=== PATIENT | male | born 1965 | race African-American/Black ===

== ENCOUNTER 2017-10-11 10:06 | Inpatient (IN) | payer OTHER ==
[~2017-10-11 10:06] MED LIST: ATROPINE 1 MG/10 ML SYRINGE IV; CEFAZOLIN 1 GM INJ; DIPHENHYDRAMINE 50 MG INJ IV; EPHEDrine SULFATE 50 MG/5 ML SYG IV; FENTAnyl 50 MCG/ML VIAL IV; HYDROmorphONE (0.2 MG/ML) 10ML SYG IV; LABETALOL HCL 20MG INJ IV; MEPERIDINE 25 MG INJ IV; MIDAZOLAM 1 MG/ML 2 ML INJ IV; ONDANSETRON 4 MG INJ IV; OXYCODONE/ACETAMINOPHEN (5/325) TAB PO; hydrALAzine 20 MG INJ IV; morphine (1 MG/ML) 10ML SYRINGE IV
[2017-10-11] MEDS ORDERED: FENTAnyl 50 MCG/ML VIAL (10:27)
[2017-10-11] MEDS ORDERED: ROCURONIUM 50 MG INJ (10:27)
[2017-10-11] MEDS ORDERED: PROPOFOL 20 ML (10:27)
[2017-10-11] MEDS ORDERED: GLYCOPYRROLATE 1 MG INJ (10:27)
[2017-10-11] MEDS ORDERED: MIDAZOLAM 1 MG/ML 2 ML INJ (10:27)
[2017-10-11] MEDS ORDERED: DEXAMETHASONE 4 MG/ML 1 ML INJ ×2 (10:27→12:51)
[2017-10-11] MEDS ORDERED: NEOSTIGMINE 3 MG/3 ML SYRINGE (10:27)
[2017-10-11] MEDS ORDERED: LIDOCAINE 2% (SDV) 5 ML INJ (10:27)
[2017-10-11] MEDS ORDERED: ONDANSETRON 4 MG INJ (10:28)
[2017-10-11] MEDS ORDERED: POLYMYXIN/BACITRACIN 1L IRRIG (11:34)
[2017-10-11] MEDS ORDERED: HYDROCORTISONE 100 MG INJ (12:57)
[2017-10-11] MEDS: LIDOCAINE 1%/EPI 30 ML INJ (13:34)
[2017-10-11] MEDS: THROMBIN 5000 UNIT VIAL (13:35)
[2017-10-11] MEDS: GELATIN SIZE 100 SPONGE (13:36)
[2017-10-11] MEDS ORDERED: EPHEDrine SULFATE 50 MG/5 ML SYG (13:36)
[2017-10-11] MEDS ORDERED: ACETAMINOPHEN 325 MG TAB PO ×2 (14:30→23:00)
[2017-10-11] MEDS ORDERED: ONDANSETRON 4 MG INJ IV (14:30)
[2017-10-11] MEDS: HYDROmorphONE (0.2 MG/ML) 10ML SYG IV (15:20)
[2017-10-11] MEDS: HYDROCODONE/APAP (7.5/325) TAB PO ×2 (15:43→22:34)
[2017-10-11] MEDS: CEFAZOLIN 1 GM/50 ML (PMX) 50 ML IVPB (16:14)
[2017-10-11] MEDS: morphine 2 MG INJ IV (16:14)
[2017-10-11] MEDS: DEXTROSE 5%-LR 1,000 ML IV (16:14)
[2017-10-11] MEDS ORDERED: hydrALAzine 20 MG INJ IV (17:30)
[2017-10-11] MEDS ORDERED: GLUCOSE GEL 15 GRAM TUBE PO ×2 (18:00)
[2017-10-11] MEDS ORDERED: GLUCOSE GEL 15 GRAM TUBE BUCCAL (18:00)
[2017-10-11] MEDS ORDERED: DEXTROSE 50% 50 ML SYRINGE IV ×2 (18:00)
[2017-10-11] MEDS ORDERED: GLUCAGON 1 MG INJ IM (18:00)
[2017-10-11] MEDS: DEXAMETHASONE 4 MG/ML 1 ML INJ IV (18:25)
[2017-10-11] MEDS: metFORMIN 500 MG TAB PO (18:25)
[2017-10-11] MEDS: NS + KCL 20 MEQ 1,000 ML IV (18:26)
[2017-10-11] MEDS: INSULIN ASPART [NOVOLOG] 3 ML PEN SC ×2 (19:02→21:00)
[2017-10-11] MEDS: NPH, HUMAN INSULIN ISOPHANE 3ML VIAL SC (19:02)
[2017-10-11] MEDS: ATORVASTATIN 20 MG TAB PO (20:57)
[2017-10-12] MEDS: DEXAMETHASONE 4 MG/ML 1 ML INJ IV ×4 (00:16→18:02)
[2017-10-12] MEDS: CEPASTAT LOZENGE MT ×4 (00:16→23:56)
[2017-10-12] MEDS: CEFAZOLIN 1 GM/50 ML (PMX) 50 ML IVPB ×2 (00:16→08:41)
[2017-10-12] MEDS: NPH, HUMAN INSULIN ISOPHANE 3ML VIAL SC ×5 (00:49→23:59)
[2017-10-12] MEDS: NS + KCL 20 MEQ 1,000 ML IV ×2 (04:18→16:06)
[2017-10-12 05:13] LABS: ADD MAN DIFF? NO
[2017-10-12 05:20] LABS: BASOPHILS % 0.1 % (0.0-2.0); HEMATOCRIT 39.9 % (42.0-52.0); HEMOGLOBIN 13.5 g/dl (14.0-18.0); LYMPHOCYTES # 1.1 10^3/ul (0.8-2.9); LYMPHOCYTES % 6.8 % (15.0-51.0); MEAN CORPUSCULAR HGB CONC 33.8 g/dl (32.0-37.0); MEAN CORPUSCULAR VOLUME 85.8 fl (82.0-101.0); MEAN PLATELET VOLUME 9.6 fl (7.4-10.4); MONOCYTE # 0.2 10^3/ul (0.3-0.9); MONOCYTES % 1.4 % (0.0-11.0); NEUTROPHIL # 14.7 10^3/ul (1.6-7.5); NEUTROPHILS % 91.3 % (39.0-77.0); PLATELET COUNT 337 10^3/UL (140-415); RED BLOOD COUNT 4.65 10^6/ul (4.70-6.10); RED CELL DISTRIBUTION WIDTH 13.3 % (11.5-14.5)
[2017-10-12 05:20] LABS: WHITE BLOOD COUNT 16.1 10^3/ul (4.8-10.8)
[2017-10-12 06:13] LABS: ALANINE AMINOTRANSFERASE 33 IU/L (13-69); ALBUMIN 4.2 g/dl (3.3-4.9); ALBUMIN/GLOBULIN RATIO 1.44; ALKALINE PHOSPHATASE 80 IU/L (42-121); ANION GAP 19 (8-16); ASPARTATE AMINO TRANSFERASE 30 IU/L (15-46); BILIRUBIN,INDIRECT 0.6 mg/dl (0-1.1); BILIRUBIN,TOTAL 0.6 mg/dl (0.2-1.3); BLOOD UREA NITROGEN 12 mg/dl (7-20); CARBON DIOXIDE 24 mmol/L (21-31); CHLORIDE 101 mmol/L (97-110); CREATININE 0.97 mg/dl (0.61-1.24); GLUCOSE 171 mg/dl (70-220); POTASSIUM 4.6 mmol/L (3.5-5.1); SODIUM 139 mmol/L (135-144); TOTAL PROTEIN 7.1 g/dl (6.1-8.1)
[2017-10-12] MEDS: morphine 2 MG INJ IV (06:15)
[2017-10-12] MEDS: INSULIN ASPART [NOVOLOG] 3 ML PEN SC ×4 (07:50→21:01)
[2017-10-12] MEDS: metFORMIN 500 MG TAB PO ×2 (08:41→18:02)
[2017-10-12] MEDS: HYDROCODONE/APAP (7.5/325) TAB PO ×4 (10:02→23:56)
[2017-10-12] MEDS: ATORVASTATIN 20 MG TAB PO (20:59)
[2017-10-13] MEDS: NS + KCL 20 MEQ 1,000 ML IV (04:27)
[2017-10-13 05:07] LABS: ADD MAN DIFF? NO
[2017-10-13 05:12] LABS: BASOPHILS % 0.1 % (0.0-2.0); HEMATOCRIT 36.3 % (42.0-52.0); HEMOGLOBIN 12.6 g/dl (14.0-18.0); LYMPHOCYTES # 1.6 10^3/ul (0.8-2.9); LYMPHOCYTES % 6.9 % (15.0-51.0); MEAN CORPUSCULAR HEMOGLOBIN 29.9 pg (29.0-33.0); MEAN CORPUSCULAR HGB CONC 34.7 g/dl (32.0-37.0); MEAN CORPUSCULAR VOLUME 86.2 fl (82.0-101.0); MEAN PLATELET VOLUME 10.3 fl (7.4-10.4); MONOCYTE # 1.1 10^3/ul (0.3-0.9); MONOCYTES % 4.7 % (0.0-11.0); NEUTROPHIL # 19.8 10^3/ul (1.6-7.5); NEUTROPHILS % 87.6 % (39.0-77.0); PLATELET COUNT 279 10^3/UL (140-415); RED BLOOD COUNT 4.21 10^6/ul (4.70-6.10); RED CELL DISTRIBUTION WIDTH 13.7 % (11.5-14.5)
[2017-10-13 05:12] LABS: WHITE BLOOD COUNT 22.6 10^3/ul (4.8-10.8)
[2017-10-13 05:49] LABS: ANION GAP 18 (8-16); BLOOD UREA NITROGEN 16 mg/dl (7-20); CALCIUM 8.7 mg/dl (8.4-10.2); CARBON DIOXIDE 23 mmol/L (21-31); CHLORIDE 103 mmol/L (97-110); CREATININE 0.92 mg/dl (0.61-1.24); GLUCOSE 126 mg/dl (70-220); POTASSIUM 4.7 mmol/L (3.5-5.1); SODIUM 139 mmol/L (135-144)
[2017-10-13] MEDS: HYDROCODONE/APAP (7.5/325) TAB PO (07:37)
[2017-10-13] MEDS: CEPASTAT LOZENGE MT (07:37)
[2017-10-13] MEDS: INSULIN ASPART [NOVOLOG] 3 ML PEN SC (07:50)
[2017-10-13] MEDS: metFORMIN 500 MG TAB PO (09:06)
== END 2017-10-13 10:51 | disposition home or self-care (01) | DRG 473 ==
LOC: REC 10:06 → MS1 15:00
PROVIDERS: Neurological Surgery
PROC: 0RG10K0 Fusion of Cervical Vertebral Joint with Nonautologous Tissue Substitute, Anterior Approach, Anterior Column, Open Approach (ICD-10-PCS; principal; 2017-10-11 12:29)
PROC: 0RT30ZZ Resection of Cervical Vertebral Disc, Open Approach (ICD-10-PCS; 2017-10-11 12:29)
DX: M50.022 Cervical disc disorder at C5-C6 level with myelopathy (principal); I10 Essential (primary) hypertension; E11.9 Type 2 diabetes mellitus without complications; E78.5 Hyperlipidemia, unspecified; F17.200 Nicotine dependence, unspecified, uncomplicated; M48.02 Spinal stenosis, cervical region; Z79.84 Long term (current) use of oral hypoglycemic drugs
CPT/HCPCS: 72050; 80048; 80053; 82962; 85025; 87086; 88304; 97116; 97163

== ENCOUNTER 2018-03-17 18:51 | Emergency (ER) | payer OTHER ==
[2018-03-17] MEDS: morphine 4 MG/ML VIAL IV (19:45)
[2018-03-17] MEDS: LIDOCAINE/MYLANTA 40 ML BTL PO (19:45)
[2018-03-17] MEDS: ONDANSETRON 4 MG INJ IV ×2 (19:45→22:08)
[2018-03-17 19:53] LABS: ADD MAN DIFF? NO
[2018-03-17 19:55] LABS: ADD UMIC NO; BASOPHIL # 0.1 10^3/ul (0.0-0.1); BASOPHILS % 0.5 % (0.0-2.0); EOSINOPHILS # 0.1 10^3/ul (0.0-0.5); EOSINOPHILS % 0.4 % (0.0-7.0); HEMATOCRIT 45.1 % (42.0-52.0); HEMOGLOBIN 15.6 g/dl (14.0-18.0); LYMPHOCYTES # 2.7 10^3/ul (0.8-2.9); MEAN CORPUSCULAR HEMOGLOBIN 29.3 pg (29.0-33.0); MEAN CORPUSCULAR HGB CONC 34.6 g/dl (32.0-37.0); MEAN CORPUSCULAR VOLUME 84.6 fl (82.0-101.0); MEAN PLATELET VOLUME 9.2 fl (7.4-10.4); MONOCYTE # 0.8 10^3/ul (0.3-0.9); MONOCYTES % 6.4 % (0.0-11.0); NEUTROPHIL # 8.4 10^3/ul (1.6-7.5); PLATELET COUNT 381 10^3/UL (140-415); RED BLOOD COUNT 5.33 10^6/ul (4.70-6.10); RED CELL DISTRIBUTION WIDTH 13.8 % (11.5-14.5); UR ASCORBIC ACID NEGATIVE (NEGATIVE); UR BILIRUBIN (Dip) NEGATIVE (NEGATIVE); UR BLOOD (Dip) NEGATIVE (NEGATIVE); UR CLARITY CLEAR (CLEAR); UR COLOR YELLOW (YELLOW); UR GLUCOSE (Dip) NEGATIVE (NEGATIVE); UR KETONES (Dip) NEGATIVE (NEGATIVE); UR LEUKOCYTE ESTERASE (Dip) NEGATIVE Leu/ul (NEGATIVE); UR NITRITE (Dip) NEGATIVE (NEGATIVE); UR SPECIFIC GRAVITY (Dip) 1.016 (1.003-1.030); UR TOTAL PROTEIN (Dip) NEGATIVE (NEGATIVE); UR UROBILINOGEN (Dip) NEGATIVE (NEGATIVE)
[2018-03-17 20:15] LABS: ALANINE AMINOTRANSFERASE 26 IU/L (13-69); ALBUMIN 4.2 g/dl (3.3-4.9); ALKALINE PHOSPHATASE 90 IU/L (42-121); ANION GAP 15 (8-16); ASPARTATE AMINO TRANSFERASE 21 IU/L (15-46); BILIRUBIN,INDIRECT 0.7 mg/dl (0-1.1); BILIRUBIN,TOTAL 0.7 mg/dl (0.2-1.3); BLOOD UREA NITROGEN 11 mg/dl (7-20); CALCIUM 9.1 mg/dl (8.4-10.2); CARBON DIOXIDE 30 mmol/L (21-31); CHLORIDE 97 mmol/L (97-110); GLUCOSE 145 mg/dl (70-220); LIPASE 112 U/L (23-300); POTASSIUM 3.7 mmol/L (3.5-5.1); SODIUM 138 mmol/L (135-144)
[2018-03-17] MEDS: KETOROLAC 30 MG INJ IV (22:09)
[2018-03-17] MEDS: HYDROmorphONE 1 MG/ML SYG IV (22:09)
== END 2018-03-17 23:27 | disposition home or self-care (01) ==
LOC: E/R 18:51
DX: K80.20 Calculus of gallbladder without cholecystitis without obstruction (principal); K57.30 Diverticulosis of large intestine without perforation or abscess without bleeding; I10 Essential (primary) hypertension; E11.9 Type 2 diabetes mellitus without complications; F17.210 Nicotine dependence, cigarettes, uncomplicated; Z79.82 Long term (current) use of aspirin; Z79.84 Long term (current) use of oral hypoglycemic drugs
CPT/HCPCS: 36415; 74176; 80053; 81003; 83690; 85025; 96374; 96375; 96376; 99285-25

== ENCOUNTER → 2018-05-01 14:52 | Inpatient (IN) | payer OTHER ==
[2018-04-29] MEDS: HYDROmorphONE 1 MG/ML SYG IV (07:19)
[2018-04-29] MEDS: ONDANSETRON 4 MG INJ IV (07:19)
[2018-04-29] MEDS: SOD CHLORIDE 0.9% 1,000 ML IV ×2 (07:20→13:33)
[2018-04-29 07:28] LABS: ADD MAN DIFF? NO
[2018-04-29 07:40] LABS: WHITE BLOOD COUNT 9.8 10^3/ul (4.8-10.8)
[2018-04-29 07:40] LABS: BASOPHILS % 0.3 % (0.0-2.0); EOSINOPHILS # 0.1 10^3/ul (0.0-0.5); EOSINOPHILS % 0.6 % (0.0-7.0); HEMATOCRIT 43.9 % (42.0-52.0); HEMOGLOBIN 15.4 g/dl (14.0-18.0); LYMPHOCYTES # 2.2 10^3/ul (0.8-2.9); LYMPHOCYTES % 22.3 % (15.0-51.0); MEAN CORPUSCULAR HEMOGLOBIN 29.1 pg (29.0-33.0); MEAN CORPUSCULAR HGB CONC 35.1 g/dl (32.0-37.0); MEAN CORPUSCULAR VOLUME 82.8 fl (82.0-101.0); MEAN PLATELET VOLUME 9.2 fl (7.4-10.4); MONOCYTE # 0.6 10^3/ul (0.3-0.9); MONOCYTES % 6.4 % (0.0-11.0); NEUTROPHIL # 6.9 10^3/ul (1.6-7.5); PLATELET COUNT 347 10^3/UL (140-415); RED CELL DISTRIBUTION WIDTH 13.8 % (11.5-14.5)
[2018-04-29 07:51] LABS: ALANINE AMINOTRANSFERASE 27 IU/L (13-69); ALBUMIN 4.2 g/dl (3.3-4.9); ALBUMIN/GLOBULIN RATIO 1.68; ALKALINE PHOSPHATASE 104 IU/L (42-121); ANION GAP 13 (8-16); ASPARTATE AMINO TRANSFERASE 22 IU/L (15-46); BLOOD UREA NITROGEN 10 mg/dl (7-20); CALCIUM 9.5 mg/dl (8.4-10.2); CARBON DIOXIDE 26 mmol/L (21-31); CHLORIDE 101 mmol/L (97-110); GLUCOSE 128 mg/dl (70-220); LIPASE 132 U/L (23-300); POTASSIUM 3.7 mmol/L (3.5-5.1); SODIUM 136 mmol/L (135-144); TOTAL PROTEIN 6.7 g/dl (6.1-8.1)
[2018-04-29 07:59] LABS: INR 0.96; PARTIAL THROMBOPLASTIN TIME 25.4 Sec (25.0-35.0); PROTIME 12.9 Sec (11.9-14.9)
[2018-04-29 08:02] LABS: TROPONIN-I < 0.010 ng/ml (0.000-0.120)
[2018-04-29] MEDS: AMPICILLIN/SULB 3 GM/NS (PMX) 100 ML IVPB (08:57)
[2018-04-29] MEDS: HYDROmorphONE 2 MG/ML SYG IV (13:43)
[2018-04-29 17:31] LABS: HEMOGLOBIN A1C 6.5 % (0-5.9)
[2018-04-29] MEDS: INSULIN ASPART [NOVOLOG] 3 ML PEN SC ×2 (17:35→21:00)
[2018-04-29] MEDS: ATORVASTATIN 20 MG TAB PO (20:54)
[2018-04-29] MEDS: GABAPENTIN 300 MG CAP PO (20:55)
[2018-04-29] MEDS: MIRTAZAPINE 15 MG TAB PO (20:56)
[2018-04-29] MEDS: AMLODIPINE 10 MG TAB PO (20:56)
[2018-04-29] MEDS: DEXTROSE 5%-0.9% NACL 1,000 ML IV (22:26)
[2018-04-30] MEDS: INSULIN ASPART [NOVOLOG] 3 ML PEN SC ×6 (01:18→21:00)
[2018-04-30] MEDS: ACCU-CHEK XX (02:00)
[2018-04-30] MEDS: PANTOPRAZOLE (EC) 40 MG TAB PO (05:18)
[2018-04-30 05:31] LABS: ADD MAN DIFF? NO
[2018-04-30 05:41] LABS: RED CELL DISTRIBUTION WIDTH 13.9 % (11.5-14.5)
[2018-04-30 05:52] LABS: BASOPHILS % 0.4 % (0.0-2.0); EOSINOPHILS # 0.1 10^3/ul (0.0-0.5); HEMATOCRIT 44.7 % (42.0-52.0); LYMPHOCYTES % 43.6 % (15.0-51.0); MEAN CORPUSCULAR HEMOGLOBIN 28.8 pg (29.0-33.0); MEAN CORPUSCULAR HGB CONC 33.6 g/dl (32.0-37.0); MEAN CORPUSCULAR VOLUME 85.8 fl (82.0-101.0); MEAN PLATELET VOLUME 9.5 fl (7.4-10.4); MONOCYTE # 0.6 10^3/ul (0.3-0.9); MONOCYTES % 8.7 % (0.0-11.0); NEUTROPHIL # 3.1 10^3/ul (1.6-7.5); NEUTROPHILS % 44.9 % (39.0-77.0); PLATELET COUNT 344 10^3/UL (140-415); RED BLOOD COUNT 5.21 10^6/ul (4.70-6.10)
[2018-04-30 05:52] LABS: WHITE BLOOD COUNT 6.9 10^3/ul (4.8-10.8)
[2018-04-30 06:03] LABS: HEMOGLOBIN A1C 6.5 % (0-5.9)
[2018-04-30 06:28] LABS: ALBUMIN/GLOBULIN RATIO 1.56; ANION GAP 10 (8-16); BILIRUBIN,TOTAL 1.3 mg/dl (0.2-1.3); CHOL/HDL RATIO 2.4 RATIO; LDL CHOLESTEROL,CALCULATED 38 mg/dl
[2018-04-30 06:41] LABS: FREE THYROXINE INDEX (Calc) 3.11 ug/ml (0.65-3.89)
[2018-04-30 06:57] LABS: CHLORIDE 102 mmol/L (97-110); POTASSIUM 4.3 mmol/L (3.5-5.1); SODIUM 140 mmol/L (135-144)
[2018-04-30 06:58] LABS: ALANINE AMINOTRANSFERASE 27 IU/L (13-69); ALBUMIN 3.6 g/dl (3.3-4.9); ALKALINE PHOSPHATASE 88 IU/L (42-121); ASPARTATE AMINO TRANSFERASE 23 IU/L (15-46); BILIRUBIN,INDIRECT 1.3 mg/dl (0-1.1); BLOOD UREA NITROGEN 7 mg/dl (7-20); CALCIUM 9.2 mg/dl (8.4-10.2); CARBON DIOXIDE 32 mmol/L (21-31); CHOLESTEROL 102 mg/dl (100-200); CREATININE 0.99 mg/dl (0.61-1.24); GLUCOSE 99 mg/dl (70-220); HDL CHOLESTEROL 42 mg/dl (28-71); MAGNESIUM 1.9 mg/dl (1.7-2.5); PHOSPHORUS 4.5 mg/dl (2.5-4.9); T3 UPTAKE 33.8 % (23.5-40.5); T4 (THYROXINE) 9.2 ug/dl (5.5-11.0); TOTAL PROTEIN 5.9 g/dl (6.1-8.1); TRIGLYCERIDES 110 mg/dl (0-149)
[2018-04-30] MEDS: metFORMIN 850 MG TAB PO (07:35)
[2018-04-30] MEDS: ASPIRIN 81 MG TAB PO (08:31)
[2018-04-30] MEDS: VENLAFAXINE (XR) 75 MG CAP PO (08:32)
[2018-04-30] MEDS: GABAPENTIN 300 MG CAP PO ×3 (08:32→21:00)
[2018-04-30] MEDS: LISINOPRIL 20 MG TAB PO (08:35)
[2018-04-30] MEDS: HYDROCHLOROTHIAZIDE 25 MG TAB PO (09:08)
[2018-04-30] MEDS: DEXTROSE 5%-0.9% NACL 1,000 ML IV ×2 (11:21→17:04)
[2018-04-30] MEDS: ATORVASTATIN 20 MG TAB PO (21:00)
[2018-04-30] MEDS: MIRTAZAPINE 15 MG TAB PO (21:00)
[2018-04-30] MEDS: AMLODIPINE 10 MG TAB PO (21:00)
[2018-04-30] MEDS: BUPIVACAINE 0.25% (MPF) 30 ML INJ INJ (22:14)
[2018-04-30] MEDS: D5-NS + KCL 20 MEQ 1,000 ML IV (22:33)
[2018-05-01] MEDS: morphine 2 MG INJ IV ×2 (00:45→05:12)
[2018-05-01] MEDS: INSULIN ASPART [NOVOLOG] 3 ML PEN SC ×4 (01:00→11:45)
[2018-05-01] MEDS: ACCU-CHEK XX (01:58)
[2018-05-01] MEDS: DEXTROSE 5%-0.9% NACL 1,000 ML IV ×2 (03:30→13:28)
[2018-05-01] MEDS: PANTOPRAZOLE (EC) 40 MG TAB PO (05:10)
[2018-05-01] MEDS: metFORMIN 850 MG TAB PO (08:05)
[2018-05-01] MEDS: D5-NS + KCL 20 MEQ 1,000 ML IV (08:33)
[2018-05-01] MEDS: HYDROCHLOROTHIAZIDE 25 MG TAB PO (09:00)
[2018-05-01] MEDS: ASPIRIN 81 MG TAB PO (09:02)
[2018-05-01] MEDS: LISINOPRIL 20 MG TAB PO (09:02)
[2018-05-01] MEDS: GABAPENTIN 300 MG CAP PO ×2 (09:02→13:25)
[2018-05-01] MEDS: HYDROCODONE/APAP (5/325) TAB PO (09:05)
[2018-05-01] MEDS: VENLAFAXINE (XR) 75 MG CAP PO (09:05)
[2018-05-01] MEDS: HYDROCHLOROTHIAZIDE 12.5 MG CAP PO (13:25)
[~2018-05-01 14:52] MED LIST changes: +ACCU-CHEK XX; +ACETAMINOPHEN 325 MG TAB PO; +ACETAMINOPHEN 650 MG SUPP PR; +ALBUTEROL 0.083% (NEB) 2.5 MG/3 ML AMP HHN; -ATROPINE 1 MG/10 ML SYRINGE IV; +BISACODYL 10 MG SUPP PR; +BUPIVACAINE 0.25% (MPF) 30 ML INJ; +DEXAMETHASONE 4 MG/ML 1 ML INJ; +DEXTROSE 50% 50 ML SYRINGE IV; +DOCUSATE SODIUM 100 MG CAP PO; +GLUCAGON 1 MG INJ IM; +GLUCOSE GEL 15 GRAM TUBE BUCCAL; +GLUCOSE GEL 15 GRAM TUBE PO; +HYDROCODONE/APAP (5/325) TAB PO; -HYDROmorphONE (0.2 MG/ML) 10ML SYG IV; +HYDROmorphONE 1 MG/5 ML IV SYRINGE IV; +KETOROLAC 30 MG INJ; +KETOROLAC 30 MG INJ IV; +LABETALOL HCL 20MG INJ; +LIDOCAINE 1%/EPI 30 ML INJ; +MAGNESIUM HYDROXIDE 30ML CUP PO; +METOCLOPRAMIDE 10 MG INJ; +METOCLOPRAMIDE 10 MG INJ IV; +MIDAZOLAM 1 MG/ML 2 ML INJ; +NACL 0.9% 3 ML SYG IV; +ONDANSETRON 4 MG INJ; +PROPOFOL 20 ML; +ROCURONIUM 50 MG INJ; +ROPIVACAINE 0.5 % 30 ML VIAL; +SUGAMMADEX SODIUM 200 MG/2 ML VIAL IV; -morphine (1 MG/ML) 10ML SYRINGE IV
== END | disposition home or self-care (01) | DRG 419 ==
PROC: 0FT44ZZ Resection of Gallbladder, Percutaneous Endoscopic Approach (ICD-10-PCS; principal; 2018-04-30 09:00)
DX: K80.00 Calculus of gallbladder with acute cholecystitis without obstruction (principal); I10 Essential (primary) hypertension; E11.9 Type 2 diabetes mellitus without complications; F32.9 Major depressive disorder, single episode, unspecified; F17.210 Nicotine dependence, cigarettes, uncomplicated; E78.00 Pure hypercholesterolemia, unspecified
CPT/HCPCS: 36415; 71045; 74176; 76705; 78226; 80053; 80061; 82962; 83036; 83690; 83735; 84100; 84436; 84443; 84479; 84484; 85025; 85610; 85730; 88304; 93005; 96361; 96374; 96375; 99285-25

== ENCOUNTER 2018-09-21 19:40 | Emergency (ER) | payer OTHER ==
[2018-09-21] MEDS: DEXAMETHASONE 10 MG/ML 1 ML INJ IM (21:02)
[2018-09-21] MEDS: KETOROLAC 60 MG INJ IM (21:05)
== END 2018-09-21 21:30 | disposition home or self-care (01) ==
LOC: FTE 19:40
DX: M79.671 Pain in right foot (principal); E11.9 Type 2 diabetes mellitus without complications; I10 Essential (primary) hypertension; F17.210 Nicotine dependence, cigarettes, uncomplicated; Z79.82 Long term (current) use of aspirin; Z79.84 Long term (current) use of oral hypoglycemic drugs
CPT/HCPCS: 96372; 99284-25